=== PATIENT | female | born 1940 | race Two or more races ===

== ENCOUNTER 2023-12-06 08:48 | Day surgery (SDC) | payer OTHER ==
[2023-11-30 12:26] LABS: Urine Bacteria None Seen /hpf (None Seen)
[2023-11-30 13:31] LABS: Basophils # (auto) 0 10 ^3/uL (0-0.2); Basophils % (auto) 0.6 % (0.0-2.0); Eosinophils # (auto) 0.2 10 ^3/uL (0-0.8); Eosinophils % (auto) 2.1 % (0.0-7.0); Hematocrit 38.6 % (36.0-46.0); Lymphocytes # (auto) 1.4 10 ^3/uL (0.4-5.4); Lymphocytes % (auto) 19.8 % (10.0-50.0); Mean Corpuscular Hemoglobin 32.2 pg (28.0-32.0); Mean Corpuscular Hgb Conc. 33.7 g/dL (32.0-36.0); Mean Corpuscular Volume 95.4 fL (80.0-100.0); Monocytes # (auto) 0.6 10 ^3/uL (0-1.3); Monocytes % (auto) 7.6 % (0.0-12.0); Neutrophils # (auto) 5.1 10 ^3/uL (1.6-8.6); Neutrophils % (auto) 69.9 % (37.0-80.0); Nucleated Red Blood Cells % 0.1 %; Platelet Count (auto) 278 10^3/uL (140-450); Red Blood Cells 4.05 10^6/uL (4.0-5.20); Red Cell Distribution Width 13.2 % (11.8-14.3); White Blood Cell 7.3 10^3/uL (4.4-10.8)
[2023-11-30 13:34] LABS: Urine Blood Negative /uL (Negative); Urine Clarity Clear (Clear); Urine Color Light-Yellow (Yellow); Urine Hyaline Cast FEW /lpf (0 - 2); Urine Protein, UAD Negative (Negative); Urine Specific Gravity 1.018 (1.001-1.035); Urine Urobilinogen Normal (Negative); Urine WBC 5 /hpf (0 - 5)
[2023-11-30 13:35] LABS: Alanine Aminotransferase 12 U/L (7-40); Albumin 4.5 g/dL (3.2-4.8); Alkaline Phosphatase 68 U/L (46-116); Anion Gap 6 (5-15); Aspartate Aminotransferase 17 U/L (13-40); BUN/Creatinine Ratio 23.6 (10.0-20.0); Bilirubin, Total 0.5 mg/dL (0.2-1.0); Blood Urea Nitrogen 17 mg/dL (9-23); Calcium 10.2 mg/dL (8.7-10.4); Carbon Dioxide 30 mmol/L (20-31); Chloride 104 mmol/L (98-107); Glucose 91 mg/dL (74-106); Potassium 4.3 mmol/L (3.5-5.1); Sodium 140 mmol/L (136-145); Total Protein 7.5 g/dL (5.7-8.2)
[2023-11-30 13:56] LABS: INR 1.08 (0.9-1.15); Partial Thromboplastin Time 30.4 SEC (24.5-34.5); Prothrombin Time 11.4 sec (9.3-11.8)
[~2023-12-06] VITALS: Ht 157.5 cm; Wt 59.0 kg
[~2023-12-06 08:48] MED LIST: ALEN70TA74 PO; ATOR10TA PO; DOCU-94 PO; FER325T PO; HYDR1TAB97 PO; HYDR25TA5 PO; LISI2.5T47 PO; METF-1145 PO
[2023-12-06] MEDS ORDERED: KETAMINE 50mg/ML 1ml syringe ONE (10:26)
[2023-12-06] MEDS ORDERED: MIDAZOLAM HCL 2MG/2ML 2ml VIAL (1mg/ml) ONE (10:26)
[2023-12-06] MEDS ORDERED: ONDANSETRON HCL 4 MG/2 ML VIAL IV ONE (10:30)
[2023-12-06 10:43] VITALS: TEMP 97.5
[2023-12-06] MEDS ORDERED: PROPOFOL 10 MG/ML 20 ML IV ONE (10:44)
[2023-12-06] MEDS ORDERED: ONDANSETRON HCL 4 MG/2 ML VIAL ONE (10:44)
[2023-12-06 11:43] VITALS: BP 146/57; PULSE 55; RESP 14; O2SAT 98
== END 2023-12-06 11:53 | disposition home or self-care (01) ==
LOC: GI 08:48 → EDUNIT# 12:30
PROVIDERS: ATTEND Internal Medicine Gastroenterology
DX: Z12.11 Encounter for screening for malignant neoplasm of colon (principal); D12.5 Benign neoplasm of sigmoid colon; K62.1 Rectal polyp; K64.0 First degree hemorrhoids; Z85.038 Personal history of other malignant neoplasm of large intestine; Z90.49 Acquired absence of other specified parts of digestive tract; I10 Essential (primary) hypertension; E11.9 Type 2 diabetes mellitus without complications; Z79.899 Other long term (current) drug therapy; Z79.84 Long term (current) use of oral hypoglycemic drugs; Z98.890 Other specified postprocedural states
CPT/HCPCS: 36415; 45380; 80053; 81001; 82962; 85025; 85610; 85730; 88305; J2250; J2405; J2704; J7030

== ENCOUNTER 2024-04-27 11:18 | Emergency (ER) | payer OTHER ==
[~2024-04-27] VITALS: Ht 152.4 cm; Wt 57.7 kg
--- NOTE | 2024-04-27 12:53 | ED.PDOC ---
History of Present Illness(SKN HPI Comments 84 year old female presents to the ED with chief complaint of left ankle wound. Patient reports that she has developed a wound to the left ankle for the past 2 weeks, worsening over time. Patient relays that there has been some pain and drainage to the wound. Patient's PCP advised for the patient to be admitted to the hospital for concern of possible osteomyelitis. Patient denies any fever, numbness, weakness, bleeding, or injury. Chief Complaint: Wound Check Time Seen by MD: 12:50 History of Present Illness: Nurses Notes, Medications, Allergies Allergies: Coded Allergies: NO KNOWN ALLERGIES (Unverified , 11/30/23) Home Meds Reported Medications Alendronate Sodium (Alendronate Sodium) 70 Mg Tab, 70 MG PO Q7D, TAB 12/01/23 Hydrocodone-Acetaminophen (Hydrocodone/Acetaminophen 5-325 mg) 1 Tab Tab, 1 TAB PO TID, TAB 12/01/23 Atorvastatin Calcium (Lipitor) 10 Mg Tab, 10 MG PO DAILY, TAB 11/30/23 Ferrous Sulfate (FERROUS SULFATE) 325 Mg Tb, 325 MG PO DAILY, TAB 11/30/23 Lisinopril (Lisinopril) 2.5 Mg Tab, 5 MG PO DAILY, TAB 11/30/23 Metformin Hydrochloride (Metformin Hcl Er) 500 Mg Tab, 500 MG PO BID, TAB 11/30/23 Hctz (Hydrochlorothiazide) 25 Mg Tab, 25 MG PO DAILY, TAB 11/30/23 Docusate Sodium (Colace) 100 Mg Cap, 100 MG PO DAILY, CAP 11/30/23 Information Source: Patient Mode of Arrival: Ambulatory Severity: Moderate Timing: Weeks Duration: Since onset Prehospital treatment: None Location: Foot Mechanism: Preceding Wound Object: None Condition of Object: None Retained Foreign Body: No Wound Type: Other (Ulceration) Immunization Status of Animal: NA Tetanus: UTD History of: Diabetes Associated Signs and Symptoms: Pus, Pain Past Medical History PAST MEDICAL HISTORY: Cancer, DM, High Lipids, HTN Surgical History: Denies all surgeries 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 Family History Family History: Reviewed,noncontributory to illness, Unobtainable Social History Smoker: Non-Smoker Alcohol: Denies ETOH Use Drugs: Denies Drug Use Lives In: Home Constitutional: denies: chills, diaphoresis, fatigue, fever, malaise, sweats, weakness, others EENTM: denies: blurred vision, double vision, ear bleeding, ear discharge, ear drainage, ear pain, ear ringing, eye pain, eye redness, hearing loss, mouth pain, mouth swelling, nasal discharge, nose bleeding, nose congestion, nose pain, photophobia, tearing, throat pain, throat swelling, voice changes, others Respiratory: denies: cough, hemoptysis, orthopnea, SOB at rest, shortness of breath, SOB with excertion, stridor, wheezing, others Cardiovascular: denies: chest pain, dizzy spells, diaphoresis, Dyspnea on exertion, edema, irregular heart beat, left arm pain, lightheadedness, palpitations, PND, syncope, others Gastrointestinal: denies: abdomen distended, abdominal pain, blood streaked bowels, constipated, diarrhea, dysphagia, difficulty swallowing, hematemesis, melena, nausea, poor appetite, poor fluid intake, rectal bleeding, rectal pain, vomiting, others Genitourinary: denies: abnormal vagina bleeding, burning, dyspareunia, dysuria, flank pain, frequency, hematuria, incontinence, pain, , vagina discharge, urgency, others Neurological: denies: dizziness, fainting, headache, left sided numbness, left sided weakness, numbness, paresthesia, pre-existing deficit, right sided numbness, right sided weakness, seizure, speech problems, tingling, tremors, weakness, others Musculoskeletal: denies: back pain, gout, joint pain, joint swelling, muscle pain, muscle stiffness, neck pain, others Integumetry: reports: wounds (Left ankle wound); denies: bruises, change in color, change in hair/nails, dryness, laceration, lesions, lumps, rash, others Allergic/Immunocompromised: denies: Difficulty Healing, Frequent Infections, Hives, Itching, others Hematologic/Lymphatic: denies: anemia, blood clots, easy bleeding, easy bruising, swollen glands, others Endocrine: denies: excessive hunger, excessive sweating, excessive thirst, excessive urination, flushing, intolerance to cold, intolerance to heat, unexplained weight gain, unexplained weight loss, others Psychiatric: denies: anxiety, bipolar disorder, depression, hopeless, panic disorder, schizophrenia, sleepless, suicidal, others All Other Systems: Reviewed and Negative Physical Exam General Appearance: No Apparent Distress, Normal HEENT: Normal ENT Inspection, PERRL/EOMI Neck: Full Range of Motion, Non-Tender, Normal, Normal Inspection Respiratory: Chest Non-Tender, Lungs Clear, No Accessory Muscle Use, No Respiratory Distress, Normal Breath Sounds Cardiovascular: No Edema, No JVD, No Murmur, No Gallop, Normal Peripheral Pulses, Regular Rate/Rhythm Breast Exam: Deferred Gastrointestinal: No Organomegaly, Non Tender, No Pulsatile Mass, Normal Bowel Sounds, Soft Genitalia: Deferred Pelvic: Deferred Rectal: Deferred Extremities: No calf tenderness, Normal capillary refill, Normal range of motion, Non-tender, No pedal edema, Other (Small ulceration noted to the left medial malleolus) Musculoskeletal : Apperance: Normal Neurologic: Alert, thread weaver II-XII nml as Tested, No Motor Deficits, Normal Affect, Normal Mood, No Sensory Deficits Cerebellar Function: Normal Reflexes: Normal Skin: Dry, Normal Color, Warm Lymphatic: No Adenopathy Was a procedure done? Was a procedure done?: No Differential Diagnosis (INTG) Differential Diagnosis: N/A Differential Diagnosis: Cellulitis, Osteomyelitis Differential Diagnosis: Cellulitis Abscess: N/A Differential Diagnosis: N/A X-Ray, Labs, Meds, VS Vital Signs Date Time Temp Pulse Resp B/P (MAP) Pulse Ox O2 Delivery O2 Flow Rate FiO2 04/27/24 12:34 98.4 64 20 181/62 (101) 99 Lab Test 04/27/24 12:46 Range/Units White Blood Count 7.6 4.4-10.8 10^3/uL Red Blood Count 4.16 4.0-5.20 10^6/uL Hemoglobin 13.0 12.2-16.2 g/dL Hematocrit 39.1 36.0-46.0 % Mean Corpuscular Volume 93.8 80.0-100.0 fL Mean Corpuscular Hemoglobin 31.1 28.0-32.0 pg Mean Corpuscular Hemoglobin Concent 33.2 32.0-36.0 g/dL Red Cell Distribution Width 13.6 11.8-14.3 % Platelet Count 279 140-450 10^3/uL Mean Platelet Volume 7.2 6.9-10.8 fL Neutrophils (%) (Auto) 71.3 37.0-80.0 % Lymphocytes (%) (Auto) 18.9 10.0-50.0 % Monocytes (%) (Auto) 7.2 0.0-12.0 % Eosinophils (%) (Auto) 2.0 0.0-7.0 % Basophils (%) (Auto) 0.6 0.0-2.0 % Neutrophils # (Auto) 5.4 1.6-8.6 10 ^3/uL Lymphocytes # (Auto) 1.4 0.4-5.4 10 ^3/uL Monocytes # (Auto) 0.5 0-1.3 10 ^3/uL Eosinophils # (Auto) 0.2 0-0.8 10 ^3/uL Basophils # (Auto) 0 0-0.2 10 ^3/uL Nucleated Red Blood Cells 0.0 % Sodium Level 138 136-145 mmol/L Potassium Level 4.5 3.5-5.1 mmol/L Chloride Level 105 98-107 mmol/L Carbon Dioxide Level 30 20-31 mmol/L Anion Gap 3 L 5-15 Blood Urea Nitrogen 16 9-23 mg/dL Creatinine 0.73 0.550-1.02 mg/dL Glomerular Filtration Rate Calc 82 >90 mL/min BUN/Creatinine Ratio 21.9 H 10.0-20.0 Serum Glucose 103 74-106 mg/dL Lactic Acid Level 0.9 0.4-2.0 mmol/L Calcium Level 10.2 8.7-10.4 mg/dL Left ankle XR: There is no evidence of acute fracture or dislocation. The visualized joint space is well maintained. The alignment is anatomical. There is no radiopaque foreign body. Time of 1ST Reevaluation: 13:50 Reevaluation 1ST: Unchanged Patient Education/Counseling: Diagnosis, Treatment Family Education/Counseling: No Family Present Additional Information Previous visit documents reviewed: None The following tests were ordered, and results were reviewed by me: CBC, BMP, UA, Blood Culture, Lactic Acid Additional Information was gathered from interviewing the following independent historians: None I reviewed and agreed with the following test results read by other providers: None I discussed treatment and results with medical personnel. Departure 1 Departure Time of Disposition: 15:01 (Patient with signs of cellulitis on her ankle. Discussed with the patient patient would like to go home and try oral antibiotics 1st. We will discharge patient home with outpatient follow up) Impression: Primary Impression: Cellulitis of left ankle Disposition: HOME / SELF CARE / HOMELESS Condition: Stable Additional Instructions: You have cellulitis. This is a skin infection. You were prescribed antibiotics. Please take as directed. You can take tylenol and motrin as needed for pain. It is important that you follow up with your regular doctor within one week to ensure you are doing well. If your symptoms worsen or you have any other concerns then please return to the ER. e-Prescriptions Sulfamethoxazole W/Trimethopri (Bactrim Ds Tablet) 1 Tab Tb 1 TAB PO BID for 7 Days, #14 TAB Prov: MARIANA OATES MD 04/27/24 Discharged With: Self Critical Care Note Critical Care Time?: No Stability Stability form required: No Heart Score Heart Score: Heart Score Response (Comments) Value History N/A 0 EKG N/A 0 Age N/A 0 Risk Factors N/A 0 Troponin N/A 0 Total 0 I personally scribed for MARIANA OATES MD ([email or web address]) on 04/27/24 at 12:53. Electronically submitted by Ed Reyes ([email or web address]). I personally scribed for MARIANA OATES MD ([email or web address]) on 04/27/24 at 14:17. Electronically submitted by Ed Reeys ([email or web address]). MARIANA OATES MD Apr 27, 2024 12:53
[2024-04-27 13:04] LABS: Basophils # (auto) 0 10 ^3/uL (0-0.2); Basophils % (auto) 0.6 % (0.0-2.0); Eosinophils # (auto) 0.2 10 ^3/uL (0-0.8); Hematocrit 39.1 % (36.0-46.0); Lymphocytes # (auto) 1.4 10 ^3/uL (0.4-5.4); Lymphocytes % (auto) 18.9 % (10.0-50.0); Mean Corpuscular Hemoglobin 31.1 pg (28.0-32.0); Mean Corpuscular Hgb Conc. 33.2 g/dL (32.0-36.0); Mean Corpuscular Volume 93.8 fL (80.0-100.0); Monocytes # (auto) 0.5 10 ^3/uL (0-1.3); Monocytes % (auto) 7.2 % (0.0-12.0); Neutrophils # (auto) 5.4 10 ^3/uL (1.6-8.6); Neutrophils % (auto) 71.3 % (37.0-80.0); Platelet Count (auto) 279 10^3/uL (140-450); Red Blood Cells 4.16 10^6/uL (4.0-5.20); Red Cell Distribution Width 13.6 % (11.8-14.3); White Blood Cell 7.6 10^3/uL (4.4-10.8)
[2024-04-27 13:09] LABS: Chloride 105 mmol/L (98-107); Potassium 4.5 mmol/L (3.5-5.1); Sodium 138 mmol/L (136-145)
[2024-04-27 13:10] LABS: Anion Gap 3 (5-15); Carbon Dioxide 30 mmol/L (20-31)
[2024-04-27 13:11] LABS: Calcium 10.2 mg/dL (8.7-10.4)
[2024-04-27 13:15] LABS: BUN/Creatinine Ratio 21.9 (10.0-20.0); Blood Urea Nitrogen 16 mg/dL (9-23); Glucose 103 mg/dL (74-106)
--- NOTE | 2024-04-27 13:23 | DVH ---
EXAM: XY L ANKLE 3 VIEW CLINICAL INDICATION: left ankle pain and wound TECHNIQUE: XY L ANKLE 3 VIEW Comparison: None FINDINGS/IMPRESSION: There is no evidence of acute fracture or dislocation. The visualized joint space is well maintained. The alignment is anatomical. There is no radiopaque foreign body.
[2024-04-27] MEDS ORDERED: BACDST PO (15:01)
[2024-04-27] MEDS: SULFAMETHOX W/TRIMETH(800/160MG) DS TAB PO ONE (15:15)
[2024-04-27 15:27] VITALS: BP 175/68; PULSE 57; RESP 20; TEMP 98.2; O2SAT 97
== END 2024-04-27 15:38 | disposition left against medical advice (07) ==
LOC: ER 11:18
DX: L03.116 Cellulitis of left lower limb (principal); I10 Essential (primary) hypertension; E11.9 Type 2 diabetes mellitus without complications; Z79.84 Long term (current) use of oral hypoglycemic drugs; Z79.899 Other long term (current) drug therapy
CPT/HCPCS: 36415; 73610; 80048; 83605; 85025; 87040; 87077; 87186

== ENCOUNTER 2024-05-05 10:23 | Emergency (ER) | payer OTHER ==
[~2024-05-05] VITALS: Ht 154.9 cm; Wt 58.7 kg
[~2024-05-05 10:23] MED LIST changes: +BACDST PO
[2024-05-05] MEDS ORDERED: DOXY-346 PO (10:38)
[2024-05-05] MEDS ORDERED: [UNRECOGNIZED DRUG - CODE] TOP (10:38)
--- NOTE | 2024-05-05 10:47 | ED.PDOC ---
History of Present Illness HPI Comments 84-year-old female presents with a chief complaint of request for medication change. Patient states she was prescribed Bactrim 1 wk ago for a right ankle/foot skin infection and after taking two pills on the first day, developed dizziness and nausea. Patient states that she has not taken it since then and th e symptoms have resolved. Patient denies any symptoms at time of triage. Patient is requesting a new medication for her skin infection. No other symptoms or modifying factors present at this time. Chief Complaint: Allergic Reaction Time Seen by MD: 10:32 Reviewed Notes: Medications, Allergies Allergies: Coded Allergies: NO KNOWN ALLERGIES (Unverified , 11/30/23) Home Meds Active Scripts Diphenhydramine HCl (Topical) (The Itch Eraser) 2 % Spr, 1 APPLIC TOP TID PRN, #1 BOTTLE Prov:CONG OLIVEIRA MD 05/05/24 Doxycycline (Monohydrate) (Doxycycline) 100 Mg Tab, 100 MG PO BID for 10 Days, #20 TAB Prov:CONG OLIVEIRA MD 05/05/24 Sulfamethoxazole W/Trimethopri (Bactrim Ds Tablet) 1 Tab Tb, 1 TAB PO BID for 7 Days, #14 TAB Prov:MARIANA OATES MD 04/27/24 Reported Medications Alendronate Sodium (Alendronate Sodium) 70 Mg Tab, 70 MG PO Q7D, TAB 12/01/23 Hydrocodone-Acetaminophen (Hydrocodone/Acetaminophen 5-325 mg) 1 Tab Tab, 1 TAB PO TID, TAB 12/01/23 Atorvastatin Calcium (Lipitor) 10 Mg Tab, 10 MG PO DAILY, TAB 11/30/23 Ferrous Sulfate (FERROUS SULFATE) 325 Mg Tb, 325 MG PO DAILY, TAB 11/30/23 Lisinopril (Lisinopril) 2.5 Mg Tab, 5 MG PO DAILY, TAB 11/30/23 Metformin Hydrochloride (Metformin Hcl Er) 500 Mg Tab, 500 MG PO BID, TAB 11/30/23 Hctz (Hydrochlorothiazide) 25 Mg Tab, 25 MG PO DAILY, TAB 11/30/23 Docusate Sodium (Colace) 100 Mg Cap, 100 MG PO DAILY, CAP 11/30/23 Information Source: Patient Mode of Arrival: Ambulatory Severity: Moderate Timing: Days Duration: Intermittent Prehospital treatment: None Past Medical History PAST MEDICAL HISTORY: Cancer, DM, High Lipids, HTN Surgical History: Denies all surgeries 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 TURNER Hx Family History Family History: Reviewed,noncontributory to illness, Unobtainable Social History Smoker: Non-Smoker Alcohol: Denies ETOH Use Drugs: Denies Drug Use Lives In: Home Constitutional: denies: chills, diaphoresis, fatigue, fever, malaise, sweats, weakness, others EENTM: denies: blurred vision, double vision, ear bleeding, ear discharge, ear drainage, ear pain, ear ringing, eye pain, eye redness, hearing loss, mouth pain, mouth swelling, nasal discharge, nose bleeding, nose congestion, nose pain, photophobia, tearing, throat pain, throat swelling, voice changes, others Respiratory: denies: cough, hemoptysis, orthopnea, SOB at rest, shortness of breath, SOB with excertion, stridor, wheezing, others Cardiovascular: denies: chest pain, dizzy spells, diaphoresis, Dyspnea on exertion, edema, irregular heart beat, left arm pain, lightheadedness, palpitations, PND, syncope, others Gastrointestinal: denies: abdomen distended, abdominal pain, blood streaked bowels, constipated, diarrhea, dysphagia, difficulty swallowing, hematemesis, melena, nausea, poor appetite, poor fluid intake, rectal bleeding, rectal pain, vomiting, others Genitourinary: denies: abnormal vagina bleeding, burning, dyspareunia, dysuria, flank pain, frequency, hematuria, incontinence, pain, , vagina discharge, urgency, others Neurological: denies: dizziness, fainting, headache, left sided numbness, left sided weakness, numbness, paresthesia, pre-existing deficit, right sided numbness, right sided weakness, seizure, speech problems, tingling, tremors, weakness, others Musculoskeletal: denies: back pain, gout, joint pain, joint swelling, muscle pain, muscle stiffness, neck pain, others Integumetry: denies: bruises, change in color, change in hair/nails, dryness, laceration, lesions, lumps, rash, wounds, others Allergic/Immunocompromised: denies: Difficulty Healing, Frequent Infections, Hives, Itching, others Hematologic/Lymphatic: denies: anemia, blood clots, easy bleeding, easy bruising, swollen glands, others Endocrine: denies: excessive hunger, excessive sweating, excessive thirst, excessive urination, flushing, intolerance to cold, intolerance to heat, unexplained weight gain, unexplained weight loss, others Psychiatric: denies: anxiety, bipolar disorder, depression, hopeless, panic disorder, schizophrenia, sleepless, suicidal, others All Other Systems: Reviewed and Negative Physical Exam General Appearance: No Apparent Distress, Normal HEENT: PERRL/EOMI Neck: Full Range of Motion, Normal Inspection Respiratory: No Accessory Muscle Use, No Respiratory Distress Cardiovascular: No Edema, No JVD, Regular Rate/Rhythm Breast Exam: Deferred Gastrointestinal: Non Tender, Soft Genitalia: Deferred Pelvic: Deferred Rectal: Deferred Extremities: No calf tenderness, Normal range of motion, Non-tender, No pedal edema Musculoskeletal : Apperance: Normal Neurologic: Alert, Normal Affect, Normal Mood, Other (ambulatory without difficulty) Cerebellar Function: Normal Reflexes: Normal Skin: Dry, Warm, Wounds (R medial ankle approx 2x3 cm ulcer with overlying scab lesion and surrounding erythema extending to medial foot/heel. Mild soft tissue tenderness. No fluctuance or discharge.) Peripheral Pulses: 2+ dorsalis pedis (R), 2+ dorsalis pedis (L) Lymphatic: NOT DONE Was a procedure done? Was a procedure done?: No Differential Dx Considerations may include: allergic drug reaction, medication side effect, gastroenteritis/viral syndrome, among others X-Ray, Labs, Meds, VS Vital Signs Date Time Temp Pulse Resp B/P (MAP) Pulse Ox O2 Delivery O2 Flow Rate FiO2 05/05/24 10:37 97.1 60 20 176/59 (98) 97 97.1 05/05/24 10:36 Room Air* 0 21 X-Ray, Labs, Meds, VS Comment 84-year-old female who was prescribed Bactrim 1 week ago, presenting stating she had dizziness, nausea and vomiting after taking the 1st dose. Patient states she has been asymptomatic for the past 6 days since discontinuing Bactrim. Vitals remarkable for BP 176/59 Exam remarkable for R medial ankle approx 2x3 cm ulcer with overlying scab lesion and surrounding erythema extending to medial foot/heel. Mild soft tissue tenderness. No fluctuance or discharge. Rhythm strip independently interpreted by me: Sinus rhythm, rate 60, no ectopy. Patient declined any treatment in the ED, stating she was not in pain. She did request a topical cream for itching around the wound site. Patient appears stable for discharge with close follow-up with her primary physician. Patient advised to discontinue Bactrim. I have prescribed doxycycline and topical diphenhydramine. Time of 1ST Reevaluation: 10:40 Reevaluation 1ST: Improved Patient Education/Counseling: Diagnosis, Treatment, Prognosis Family Education/Counseling: No Family Present Departure 1 Departure Time of Disposition: 10:44 Impression: Primary Impression: Medication course changed Disposition: HOME / SELF CARE / HOMELESS Condition: Stable Additional Instructions: discontinue bactrim. i have prescribed another antibiotic. follow up with primary doctor in 1-2 days. e-Prescriptions Diphenhydramine HCl (Topical) (The Itch Eraser) 2 % Spr 1 APPLIC TOP TID PRN, #1 BOTTLE Prov: CONG OLIVEIRA MD 05/05/24 Doxycycline (Monohydrate) (Doxycycline) 100 Mg Tab 100 MG PO BID for 10 Days, #20 TAB Prov: CONG OLIVEIRA MD 05/05/24 Discharged With: Self Critical Care Note Critical Care Time?: No Stability Stability form required: No Heart Score Heart Score: Heart Score Response (Comments) Value History N/A 0 EKG N/A 0 Age N/A 0 Risk Factors N/A 0 Troponin N/A 0 Total 0 I personally scribed for CONG OLIVEIRA MD ([email or web address]) on 05/05/24 at 10:47. Electronically submitted by Renan Cohen ([email or web address]). CONG OLIVEIRA MD May 05, 2024 10:47
[2024-05-05 10:51] VITALS: BP 154/62; PULSE 72; RESP 17; TEMP 98; O2SAT 98
== END 2024-05-05 10:55 | disposition home or self-care (01) ==
LOC: ER 10:23
DX: R42 Dizziness and giddiness (principal); R11.2 Nausea with vomiting, unspecified; T36.8X5A Adverse effect of other systemic antibiotics, initial encounter; E11.9 Type 2 diabetes mellitus without complications; E78.5 Hyperlipidemia, unspecified; I10 Essential (primary) hypertension; Z79.84 Long term (current) use of oral hypoglycemic drugs; Z79.899 Other long term (current) drug therapy; Y92.89 Other specified places as the place of occurrence of the external cause